=== PATIENT | female | born 1965 | race Caucasian/White ===

== ENCOUNTER 2021-10-30 17:09 | Emergency (ER) | payer MEDICARE ==
[2021-10-30 17:38] LABS: HEMOGLOBIN 10.3 gm/dl (12.3-15.3); RED BLOOD COUNT 3.65 M/UL (4.00-5.10); WHITE BLOOD COUNT 10.1 K/UL (4.5-11.0)
[2021-10-30] MEDS ORDERED: OMNICEF 300 MG300 MG PO (20:05)
== END 2021-10-30 20:25 | disposition home or self-care (01) ==
LOC: ER1 17:09
PROVIDERS: Emergency Medicine
DX: R60.0 Localized edema (principal); R09.89 Other specified symptoms and signs involving the circulatory and respiratory systems; I11.0 Hypertensive heart disease with heart failure; I50.9 Heart failure, unspecified
CPT/HCPCS: 71045; 71046; 80053; 83605; 85025; 93005; 96374; 99284

== ENCOUNTER → 2021-11-10 | Outpatient (CLI) | payer MEDICARE ==
[~2021-11-10] MED LIST: OMNICEF 300 MG300 MG PO
== END ==
LOC: EMI 10:36
DX: M51.36 Other intervertebral disc degeneration, lumbar region (principal); M51.27 Other intervertebral disc displacement, lumbosacral region; M48.061 Spinal stenosis, lumbar region without neurogenic claudication
CPT/HCPCS: 72148